=== PATIENT | female | born 1975 | race African-American/Black ===

== ENCOUNTER 2017-10-05 11:44 | Day surgery (SDC) | payer OTHER ==
[2017-10-05] MEDS ORDERED: LIDOCAINE 2% INJ 100 MG/5 ML SDV (FOR ANES.) As Ordered (14:02)
[2017-10-05] MEDS ORDERED: PROPOFOL 200 MG/20 ML VIAL As Ordered (14:02)
== END 2017-10-05 14:06 | disposition home or self-care (01) ==
LOC: M OPP 11:44
DX: Z12.11 Encounter for screening for malignant neoplasm of colon (principal); Z83.71 Family history of colonic polyps; Z79.899 Other long term (current) drug therapy; Z80.3 Family history of malignant neoplasm of breast; Z80.0 Family history of malignant neoplasm of digestive organs; Z80.42 Family history of malignant neoplasm of prostate
CPT/HCPCS: G0105

== ENCOUNTER → 2021-05-16 | Outpatient (CLI) | payer OTHER ==
[~2021-05-16] MED LIST: CLA1000C PO; CLIN1SOL EX; MULT1TAB10 PO; [UNRECOGNIZED DRUG - CODE] PO; [UNRECOGNIZED DRUG - CODE] PO
--- NOTE | 2021-05-16 15:51 | REPMRS ---
Patient History The patient states she has not had a clinical breast exam in over a year. Patient had first child at age 33. Family history of unknown cancer in maternal aunt, breast cancer in paternal aunt, unknown cancer in maternal grandfather. Tomosynthesis is performed. Volpara breast density is b. Trying to locate out of town priors No breast complaints today Patient signed the MRS sheet 1st vaccine 07/12-Moderna 2nd vaccine 08/09-not sure which arm 1st 2 were in 3rd vaccine 04/03-right arm Patient Identification Verified Patient states she has gained at least 10lbs in the last year Digital Woman Screen Mammo: May 16, 2021 - Exam #: [id number] Bilateral CC and MLO view(s) were taken. Technologist: Yaneli Mae, Technologist Prior study comparison: February 14, 2019, bilateral digital mammo screening bilat, performed at [facility]. January 14, 2018, left breast diagnostic unilateral mammo, performed at [facility]. January 14, 2018, bilateral screening whole breast ultrasound, performed at [facility]. July 02, 2017, bilateral digital mammo screening bilat, performed at [facility]. FINDINGS: There are scattered fibroglandular densities. There has been no change in the appearance of the mammogram from the prior studies. There is a mild amount of residual fibroglandular tissue which is fairly symmetric. There is no interval development of dominant mass, architectural distortion, or clustered microcalcification suggestive of malignancy. Assessment: BI-RADS/ACR category 1 mammogram. Negative Mammogram. Recommendation Routine screening mammogram in 1 year (for women over age 40). This mammogram was interpreted with the aid of an FDA-approved computer-aided dectection system. The Lifetime Breast Cancer Risk is estimated at 20.3%. Yearly supplemental screening MRI of the breasts is recommended for patients with an elevated lifetime risk of breast cancer of 20% or greater, in addition to annual screening mammography, staggered every 6 months. Electronically Signed By: Aneudy Stratton MD 05/16/21 [id number]
== END ==
LOC: M WHC 12:54
PROVIDERS: ATTEND Nurse Practitioner Family
DX: Z12.31 Encounter for screening mammogram for malignant neoplasm of breast (principal)

== ENCOUNTER → 2021-12-08 | Outpatient (CLI) | payer OTHER | LOC: M RAD 13:03 | PROVIDERS: ATTEND Orthopaedic Surgery | DX: M75.41 Impingement syndrome of right shoulder (principal) ==

== ENCOUNTER → 2021-12-23 | Outpatient (CLI) | payer OTHER ==
[~2021-12-23] MED LIST changes: +PROHANCE 279.3MG/ML 15ML VIAL ONE
== END ==
LOC: M PLAIMG 14:57
PROVIDERS: ATTEND Nurse Practitioner Family
DX: Z12.39 Encounter for other screening for malignant neoplasm of breast (principal); R92.8 Other abnormal and inconclusive findings on diagnostic imaging of breast
CPT/HCPCS: A9576; C8908

== ENCOUNTER → 2022-01-03 | Outpatient (CLI) | payer OTHER ==
[~2022-01-03] MED LIST changes: -PROHANCE 279.3MG/ML 15ML VIAL ONE
== END ==
LOC: M WHC 11:58
PROVIDERS: ATTEND Nurse Practitioner Family
DX: R92.8 Other abnormal and inconclusive findings on diagnostic imaging of breast (principal); N63.20 Unspecified lump in the left breast, unspecified quadrant

== ENCOUNTER → 2022-04-23 | Outpatient (CLI) | payer OTHER ==
[~2022-04-23] MED LIST changes: +CETI10CH PO; +ESTR1TAB PO; +IPRA3SP; +SULF500T56 PO; +VENL75TA2 PO; +VITMTA PO
== END ==
LOC: M LABSMTC 10:50
PROVIDERS: ATTEND Anesthesiology
DX: Z01.812 Encounter for preprocedural laboratory examination (principal); Z11.52 Encounter for screening for COVID-19

== ENCOUNTER 2022-04-28 08:36 | Day surgery (SDC) | payer OTHER ==
[~2022-04-28] VITALS: Ht 162.6 cm; Wt 63.7 kg
[~2022-04-28 08:36] MED LIST changes: +ceFAZolin SOD 2 GM in IV 1 EA IV ONE; +oxyCODONE 5MG TAB PO ONE
[2022-04-28] MEDS ORDERED: LR 1,000 ML IV SCH ×2 (08:55→13:40)
[2022-04-28] MEDS ORDERED: EPINEPHrine INJ 1 MG/ML 1ML AMP As Ordered ONE (10:16)
[2022-04-28] MEDS ORDERED: ROPIvacaine 0.5% 30ML VIAL PN ONE (10:20)
[2022-04-28] MEDS ORDERED: MIDAZOLAM INJ 2MG/2ML VIAL (J2250 PER 1MG) IV PRN (10:20)
[2022-04-28] MEDS ORDERED: fentaNYL 100 MCG/2 ML INJECTION IV PRN ×2 (10:20→13:40)
[2022-04-28] MEDS ORDERED: LIDOCAINE 1% SDV 5ML VIAL PN ONE (10:20)
[2022-04-28] MEDS ORDERED: KETOROLAC 60MG 2ML VIAL As Ordered ONE (11:16)
[2022-04-28] MEDS ORDERED: LIDOCAINE 2% 100MG/5ML SDV (FOR ANES.) As Ordered ONE (11:16)
[2022-04-28] MEDS ORDERED: propofoL 200 MG/20 ML VIAL As Ordered ONE (11:16)
[2022-04-28] MEDS ORDERED: ONDANSETRON 4MG 2ML VIAL As Ordered ONE (11:16)
[2022-04-28] MEDS ORDERED: SUGAMMADEX SODIUM 500 MG/5 ML VIAL (BRIDION) As Ordered ONE (11:16)
[2022-04-28] MEDS ORDERED: ROCURONIUM BROMIDE 50 MG/5 ML VIAL As Ordered ONE (11:16)
[2022-04-28] MEDS ORDERED: fentaNYL 100 MCG/2 ML INJECTION As Ordered ONE ×2 (11:16→11:25)
[2022-04-28] MEDS ORDERED: MIDAZOLAM INJ 2MG/2ML VIAL (J2250 PER 1MG) As Ordered ONE (11:16)
[2022-04-28] MEDS ORDERED: PHENYLephrine 500MCG 5ML (100MCG/ML) SYRINGE As Ordered ONE (11:20)
[2022-04-28] MEDS ORDERED: ePHEDrine SULFATE 25 MG/5 ML(5MG/ML) SYRINGE As Ordered ONE (11:33)
[2022-04-28] MEDS ORDERED: PHENYLEPHRINE 10MG/ML 1ML VIAL As Ordered ONE (11:35)
[2022-04-28] MEDS ORDERED: GLYCOPYRROLATE INJ 0.2 MG/ML 2 ML VIAL As Ordered ONE (13:20)
[2022-04-28] MEDS ORDERED: oxyCODONE 5MG TAB PO PRN (13:40)
[2022-04-28] MEDS ORDERED: ONDANSETRON 4MG 2ML VIAL IV PRN (13:40)
[2022-04-28] MEDS ORDERED: HYDROMORPHONE HCL 0.5 MG/ 0.5 ML SYRINGE (J1170 PER 1) IV PRN (13:40)
[2022-04-28] MEDS ORDERED: OXYC1TAB23 PO (13:52)
[2022-04-28 15:42] VITALS: BP 130/73
== END 2022-04-28 15:55 | disposition home or self-care (01) ==
LOC: M SDC 08:36
PROVIDERS: ATTEND Orthopaedic Surgery
DX: M75.81 Other shoulder lesions, right shoulder (principal); M75.41 Impingement syndrome of right shoulder; M12.9 Arthropathy, unspecified; L40.8 Other psoriasis; Z79.899 Other long term (current) drug therapy
CPT/HCPCS: 29824; 29826; 29828; 76000; C1713; J0171; J0690; J1100; J1885; J2250; J2370; J2405; J2795; J3010

== ENCOUNTER → 2022-06-20 | Outpatient (CLI) | payer OTHER ==
[~2022-06-20] MED LIST changes: +OXYC1TAB23 PO; -ceFAZolin SOD 2 GM in IV 1 EA IV ONE; -oxyCODONE 5MG TAB PO ONE
== END ==
LOC: M SOG 07:54
PROVIDERS: ATTEND Orthopaedic Surgery
DX: Z47.89 Encounter for other orthopedic aftercare (principal)

== ENCOUNTER 2022-07-14 13:00 | Outpatient (RCR) | payer OTHER | END 2022-07-15 | LOC: M PT 13:00 | PROVIDERS: ATTEND Orthopaedic Surgery | DX: Z47.89 Encounter for other orthopedic aftercare (principal); S43.431D Superior glenoid labrum lesion of right shoulder, subsequent encounter; M19.011 Primary osteoarthritis, right shoulder ==

== ENCOUNTER 2022-07-23 13:00 | Outpatient (RCR) | payer OTHER | END 2022-08-15 | LOC: M PT 13:00 | PROVIDERS: ATTEND Orthopaedic Surgery | DX: Z47.89 Encounter for other orthopedic aftercare (principal); Z98.890 Other specified postprocedural states; M25.511 Pain in right shoulder ==

== ENCOUNTER → 2022-08-26 | Outpatient (CLI) | payer OTHER | LOC: M WHC 14:27 | PROVIDERS: ATTEND Nurse Practitioner Family | DX: Z12.31 Encounter for screening mammogram for malignant neoplasm of breast (principal) ==

== ENCOUNTER → 2023-01-16 | Outpatient (CLI) | payer OTHER ==
[~2023-01-16] MED LIST changes: +APRE30TA3 PO; +CHOL25TA8 PO; +PROHANCE 279.3MG/ML 15ML VIAL As Ordered ONE; +SPIR50TA4 PO; +VENL75CA47 PO; +VITA100T43 PO
== END ==
LOC: M RAD 10:42
PROVIDERS: ATTEND Nurse Practitioner Family
DX: Z12.39 Encounter for other screening for malignant neoplasm of breast (principal)
CPT/HCPCS: A9576; C8908

== ENCOUNTER 2023-07-07 07:52 | Day surgery (SDC) | payer OTHER ==
[~2023-07-07] VITALS: Ht 162.6 cm; Wt 62.6 kg
[~2023-07-07 07:52] MED LIST changes: +LIDOCAINE 2% 100MG/5ML SDV (FOR ANES.) As Ordered ONE; -PROHANCE 279.3MG/ML 15ML VIAL As Ordered ONE; +propofoL 200 MG/20 ML VIAL As Ordered ONE
[2023-07-07] MEDS: NS 1,000 ML IV ONE (08:16)
[2023-07-07] MEDS ORDERED: GLYCOPYRROLATE INJ 0.2 MG/ML 2 ML VIAL As Ordered ONE (09:52)
[2023-07-07 10:09] VITALS: TEMP 97.2
[2023-07-07 10:23] VITALS: BP 158/87; O2SAT 97
== END 2023-07-07 10:36 | disposition home or self-care (01) ==
LOC: M OPP 07:52
PROVIDERS: ATTEND Internal Medicine Gastroenterology
DX: Z12.11 Encounter for screening for malignant neoplasm of colon (principal); Z83.719 Family history of colon polyps, unspecified; K64.8 Other hemorrhoids; Z79.620 Long term (current) use of immunosuppressive biologic; Z79.631 Long term (current) use of antimetabolite agent; Z79.818 Long term (current) use of other agents affecting estrogen receptors and estrogen levels; Z79.899 Other long term (current) drug therapy
CPT/HCPCS: 45378; G0463

== ENCOUNTER → 2023-08-28 | Outpatient (CLI) | payer OTHER ==
[~2023-08-28] MED LIST changes: -LIDOCAINE 2% 100MG/5ML SDV (FOR ANES.) As Ordered ONE; -propofoL 200 MG/20 ML VIAL As Ordered ONE
== END ==
LOC: M WHC 13:17
PROVIDERS: ATTEND Nurse Practitioner Family
DX: Z12.31 Encounter for screening mammogram for malignant neoplasm of breast (principal)

== ENCOUNTER → 2024-02-29 | Outpatient (CLI) | payer OTHER ==
[~2024-02-29] MED LIST changes: +PROHANCE 279.3MG/ML 15ML VIAL ONE
== END ==
LOC: M PLAIMG 14:42
PROVIDERS: ATTEND Nurse Practitioner Family
DX: Z12.39 Encounter for other screening for malignant neoplasm of breast (principal); Z91.89 Other specified personal risk factors, not elsewhere classified
CPT/HCPCS: A9576; C8908

== ENCOUNTER 2024-04-19 10:23 | Observation (INO) | payer OTHER ==
[~2024-04-19] VITALS: Ht 162.6 cm; Wt 62.6 kg
[~2024-04-19 10:23] MED LIST changes: +LIDOCAINE 2% 100MG/5ML SDV (FOR ANES.) As Ordered ONE; +MIDAZOLAM INJ 2MG/2ML VIAL As Ordered ONE; +ONDANSETRON 4MG 2ML VIAL As Ordered ONE; +PRO1CAP PO; -PROHANCE 279.3MG/ML 15ML VIAL ONE; +ROCURONIUM BROMIDE 50MG/5ML VIAL As Ordered ONE; +fentaNYL 250 MCG/5 ML INJECTION As Ordered ONE; +propofoL 200 MG/20 ML VIAL As Ordered ONE
[2024-04-19] MEDS: NS 1,000 ML IV SCH ×2 (10:30→18:35)
[2024-04-19] MEDS ORDERED: dexmedeTOMIDine (4MCG/ML)200MCG/50ML BTL (PRECEDEX) As Ordered ONE (14:01)
[2024-04-19] MEDS: ceFAZolin SOD 2 GM in IV 1 EA IV ONE (15:35)
[2024-04-19] MEDS: HEPARIN SOD (PORCINE) 5000UNITS/ML 1ML VIAL/SYRINGE SQ ONE (16:00)
[2024-04-19] MEDS ORDERED: LACRILUBE (AKWA TEARS) OPHTH OINT 3.5GM As Ordered ONE (16:00)
[2024-04-19] MEDS ORDERED: GLYCOPYRROLATE INJ 0.2 MG/ML 2 ML VIAL As Ordered ONE (16:00)
[2024-04-19] MEDS ORDERED: PHENYLephrine 500MCG 5ML (100MCG/ML) SYRINGE As Ordered ONE (16:20)
[2024-04-19] MEDS ORDERED: HYDROmorphone HCL 2MG/ML 1ML VIAL As Ordered ONE (16:28)
[2024-04-19] MEDS ORDERED: SUGAMMADEX SODIUM 500 MG/5 ML VIAL (BRIDION) As Ordered ONE (16:28)
[2024-04-19] MEDS ORDERED: ePHEDrine SULFATE 25 MG/5 ML(5MG/ML) SYRINGE As Ordered ONE (16:36)
[2024-04-19] MEDS ORDERED: ACETAMINOPHEN 1000MG/100ML IV BAG As Ordered ONE (16:47)
[2024-04-19] MEDS: GENTAMICIN SULF 80MG/2ML VIAL As Ordered ONE (17:49)
[2024-04-19] MEDS ORDERED: ONDANSETRON 4MG 2ML VIAL IV PRN (18:45)
[2024-04-19] MEDS: fentaNYL 100 MCG/2 ML INJECTION IV PRN (19:12)
[2024-04-19] MEDS: NS 500 ML IV ONE (19:23)
[2024-04-19] MEDS: HYDROMORPHONE HCL 0.5 MG/ 0.5 ML SYRINGE IV PRN (19:36)
[2024-04-19] MEDS: ONDANSETRON 4MG 2ML VIAL IV PRN (19:37)
[2024-04-19] MEDS: oxyCODONE 5MG TAB PO PRN (19:37)
[2024-04-19 20:13] VITALS: BP 143/83; TEMP 97.3; O2SAT 98
[2024-04-19 20:40] VITALS: BP 140/79; TEMP 97; O2SAT 91
[2024-04-19] MEDS ORDERED: SULFADIAZINE 500 MG PO SCH (21:00)
[2024-04-19 21:40] VITALS: BP 138/78; TEMP 97; O2SAT 96
[2024-04-19 22:41] VITALS: BP 126/70; TEMP 97.2; O2SAT 97
[2024-04-19] MEDS ORDERED: SULF1TAB30 PO (23:10)
[2024-04-19] MEDS ORDERED: HOME MED LIST COMPLETE! XX SCH (23:10)
[2024-04-19] MEDS: sulfaSALAzine 500 MG TABEC PO SCH (23:35)
[2024-04-20] VITALS (7 sets, daily range): BP systolic 122–126; BP diastolic 63–68; TEMP 96.8–97.7; O2SAT 96–99
[2024-04-20] MEDS: ceFAZolin SOD 2 GM in IV 1 EA IV SCH (00:56)
[2024-04-20] MEDS: ACETAMINOPHEN 325 MG TAB PO PRN (06:08)
[2024-04-20] MEDS: SPIRONOLACTONE 50 MG TAB PO SCH (09:02)
[2024-04-20] MEDS: VENLAFAXINE **XR** 75MG CAPSULE PO SCH (09:02)
[2024-04-20] MEDS: traMADol 50 MG TAB PO PRN (09:04)
[2024-04-20] MEDS ORDERED: PERCOCET PO (13:42)
[2024-04-20] MEDS: PERCOCET 5MG/325MG TAB PO PRN (14:33)
== END 2024-04-20 15:00 | disposition home or self-care (01) ==
LOC: M SDC 10:23 → M MS5PR 10:24
PROVIDERS: ADMIT Plastic Surgery Surgery of the Hand; ATTEND Plastic Surgery Surgery of the Hand
DX: M54.07 Panniculitis affecting regions of neck and back, lumbosacral region (principal); L40.9 Psoriasis, unspecified; F41.9 Anxiety disorder, unspecified; F32.A Depression, unspecified; Z79.899 Other long term (current) drug therapy
CPT/HCPCS: 15830; 15847; 88300; 96365; 96366; C9290; G0378; J0131; J0665; J0690; J1100; J1171; J1580; J1596; J2250; J2371; J2405; J3010

== ENCOUNTER → 2024-08-29 | Outpatient (CLI) | payer OTHER ==
[~2024-08-29] MED LIST changes: -LIDOCAINE 2% 100MG/5ML SDV (FOR ANES.) As Ordered ONE; -MIDAZOLAM INJ 2MG/2ML VIAL As Ordered ONE; -ONDANSETRON 4MG 2ML VIAL As Ordered ONE; +PERCOCET PO; -ROCURONIUM BROMIDE 50MG/5ML VIAL As Ordered ONE; +SULF1TAB30 PO; -fentaNYL 250 MCG/5 ML INJECTION As Ordered ONE; -propofoL 200 MG/20 ML VIAL As Ordered ONE
== END ==
LOC: M WHC 15:00
PROVIDERS: ATTEND Family Medicine
DX: Z12.31 Encounter for screening mammogram for malignant neoplasm of breast (principal); R92.323 Mammographic fibroglandular density, bilateral breasts